=== PATIENT | female | born 1990 | race Caucasian/White ===

== ENCOUNTER 2022-03-29 09:57 | Emergency (ER) | payer SELFPAY ==
[~2022-03-29] VITALS: Ht 162.6 cm; Wt 54.5 kg
[2022-03-29 09:59] VITALS: BP 129/84
== END 2022-03-29 10:45 | disposition left against medical advice (07) ==
LOC: EMS 10:02
DX: J06.9 Acute upper respiratory infection, unspecified (principal); E78.00 Pure hypercholesterolemia, unspecified
CPT/HCPCS: 99281; Z7502